=== PATIENT | female | born 1960 | race African-American/Black ===

== ENCOUNTER 2017-05-09 18:12 | Emergency (ER) | payer MEDICAID, OTHER ==
[~2017-05-09] VITALS: Ht 170.2 cm; Wt 93.0 kg
[2017-05-09] MEDS ORDERED: ACETAMINOPHEN WITH CODEINE 300/30MG TABLET PO ONE (19:15)
[2017-05-09] MEDS ORDERED: CYCLOBENZAPRINE 10MG TABLET PO ONE (19:15)
[2017-05-09 20:20] VITALS: BP 110/77
== END 2017-05-09 21:04 | disposition home or self-care (01) ==
LOC: ER 18:12
DX: S16.1XXA Strain of muscle, fascia and tendon at neck level, initial encounter (principal); X58.XXXA Exposure to other specified factors, initial encounter; Y93.89 Activity, other specified; Y92.89 Other specified places as the place of occurrence of the external cause
CPT/HCPCS: 72040; 99284

== ENCOUNTER 2017-05-15 04:34 | Emergency (ER) | payer OTHER ==
[~2017-05-15] VITALS: Ht 165.1 cm; Wt 64.0 kg
[2017-05-15] MEDS ORDERED: DEXAMETHASONE 10MG/ML 1ML VIAL IM ONE (05:15)
[2017-05-15] MEDS ORDERED: AZITHROMYCIN 250 MG TABLET PO ONE (05:15)
[2017-05-15] MEDS ORDERED: IBUPROFEN 400MG TABLET PO ONE (05:15)
[2017-05-15 05:23] VITALS: BP 147/77
== END 2017-05-15 05:32 | disposition home or self-care (01) ==
LOC: ER 04:50
DX: T70.0XXA Otitic barotrauma, initial encounter (principal); M19.90 Unspecified osteoarthritis, unspecified site; X58.XXXA Exposure to other specified factors, initial encounter
CPT/HCPCS: 96372; 99283; J1100; Z7610

== ENCOUNTER 2019-09-19 01:12 | Emergency (ER) | payer MEDICARE, OTHER ==
[~2019-09-19] VITALS: Ht 170.2 cm; Wt 96.0 kg
[2019-09-19] MEDS ORDERED: KETOROLAC 60MG/2ML VIAL IM ONE (06:15)
[2019-09-19 07:45] VITALS: BP 110/60
== END 2019-09-19 07:45 | disposition home or self-care (01) ==
LOC: ER 01:55
DX: M79.661 Pain in right lower leg (principal); M25.551 Pain in right hip; M19.90 Unspecified osteoarthritis, unspecified site; M81.0 Age-related osteoporosis without current pathological fracture
CPT/HCPCS: 96372; 99283; J1885